=== PATIENT | male | born 1955 | race Hispanic/Latino ===

== ENCOUNTER 2022-02-10 05:38 | Day surgery (SDC) | payer MEDICARE ==
[2022-02-09 10:21] LABS: BASOPHILS % (AUTO) 0.3 % (0.0-5.0); EOSINOPHILS % (AUTO) 0.4 % (0.0-8.0); HEMATOCRIT 30.7 % (42-54); LYMPHOCYTES % (AUTO) 17.3 % (21.0-51.0); MEAN CORPUSCULAR HEMOGLOBIN 24.3 pg (27.0-33.0); MEAN CORPUSCULAR HGB CONC 31.6 g/dL (32.0-36.0); MEAN CORPUSCULAR VOLUME 76.9 fL (79-99); MONOCYTES % (AUTO) 6.1 % (3.0-13.0); NEUTROPHILS % (AUTO) 75.2 % (40.0-77.0); PLATELET COUNT (AUTO) 199 K/uL (130-400); RED BLOOD CELL COUNT(AUTO) 3.99 MIL/uL (4.50-6.20); RED CELL DISTRIBUTION WIDTH 16.6 % (11.0-15.5); WHITE BLOOD COUNT (AUTO) 7.2 K/uL (4.8-10.8)
[2022-02-09 10:31] LABS: CREATININE 1.7 mg/dL (0.5-1.5); POTASSIUM 4.4 mmol/L (3.5-5.1)
[2022-02-09 10:33] LABS: INR 0.96 (0.85-1.15); PROTHROMBIN TIME 10.5 SEC (9.6-11.6)
[2022-02-09 10:34] LABS: PARTIAL THROMBOPLASTIN TIME 26.8 SEC (26.3-35.5)
[~2022-02-10] VITALS: Ht 172.7 cm; Wt 135.6 kg
[2022-02-10 09:59] VITALS: BP 127/65
[2022-02-10] MEDS ORDERED: APIX5TAB PO (14:17)
[2022-02-10] MEDS ORDERED: ALLO100T PO (15:17)
[2022-02-10] MEDS ORDERED: FOLI1 PO (15:17)
[2022-02-10] MEDS ORDERED: SUCR1TAB2 PO (15:17)
[2022-02-10] MEDS ORDERED: IRON1CAP13 PO (15:17)
[2022-02-10] MEDS ORDERED: INSU3INS5 SQ (15:17)
[2022-02-10] MEDS ORDERED: TRAM50TA4 PO (15:17)
[2022-02-10] MEDS ORDERED: PANT40TA54 PO (15:17)
[2022-02-10] MEDS ORDERED: CARV25TA PO (15:17)
[2022-02-10] MEDS ORDERED: NITR0.4T50 SL (15:17)
[2022-02-10] MEDS ORDERED: POTA-183 PO (15:17)
[2022-02-10] MEDS ORDERED: GABA300C PO (15:17)
[2022-02-10] MEDS ORDERED: TORS20TA4 PO (15:17)
[2022-02-10] MEDS ORDERED: AMIO200T68 PO (15:17)
[2022-02-10] MEDS ORDERED: FAMO20TA8 PO (15:17)
[2022-02-10] MEDS ORDERED: SACU1TAB4 PO (15:17)
[2022-02-10] MEDS ORDERED: SENN-2 PO (15:17)
[2022-02-10] MEDS ORDERED: RANO10003 PO (15:17)
[2022-02-10] MEDS ORDERED: BISA5TAB12 PO (15:17)
[2022-02-10] MEDS ORDERED: LEVO25CA4 PO (15:17)
[2022-02-10] MEDS ORDERED: ISOS60TA77 PO (15:17)
[2022-02-13] VITALS (8 sets, daily range): BP systolic 105–133; BP diastolic 64–71
[2022-02-13] MEDS ORDERED: 0.9% NACL 500ML IV.SOLN 500 ML IV SCH (06:00)
[2022-02-13] MEDS ORDERED: CEFAZOLIN SODIUM 1 GM VIAL IVP SCH (06:00)
[2022-02-13] MEDS ORDERED: 0.9%NACL 1000ML 1,000 ML IV ONE (06:51)
[2022-02-13] MEDS ORDERED: MEPERIDINE-PF 25 MG/ML SYG ONE ×2 (07:42→08:05)
[2022-02-13] MEDS ORDERED: MIDAZOLAM HCL 1 MG/ML 2ML VIAL ONE ×2 (07:42→08:05)
[2022-02-13] MEDS ORDERED: BUPIVACAINE/PF 0.25% 30ML VIAL IJ ONE (07:42)
[2022-02-13] MEDS ORDERED: LIDOCAINE HCL 400MG/20ML VIAL ONE (07:43)
[2022-02-13] MEDS ORDERED: DOPAMINE HCL 400 MG/D5%-WATER 0 ML IV ONE (08:23)
[2022-02-13] MEDS ORDERED: BACITRACIN 1 EACH PACKET TP ONE (08:37)
[2022-02-13] MEDS ORDERED: ACETAMINOPHEN WITH CODEINE 1 TAB TAB PO PRN (09:00)
[2022-02-13] MEDS ORDERED: TRAM50TA4 PO (09:08)
== END 2022-02-13 12:10 | disposition home or self-care (01) ==
LOC: DAH 05:38
PROVIDERS: ATTEND Internal Medicine Cardiovascular Disease
DX: Z45.02 Encounter for adjustment and management of automatic implantable cardiac defibrillator (principal); I25.5 Ischemic cardiomyopathy; E11.22 Type 2 diabetes mellitus with diabetic chronic kidney disease; I12.9 Hypertensive chronic kidney disease with stage 1 through stage 4 chronic kidney disease, or unspecified chronic kidney disease; N18.9 Chronic kidney disease, unspecified; I50.22 Chronic systolic (congestive) heart failure; I25.10 Atherosclerotic heart disease of native coronary artery without angina pectoris; I48.91 Unspecified atrial fibrillation; Z79.899 Other long term (current) drug therapy; Z79.01 Long term (current) use of anticoagulants; Z79.890 Hormone replacement therapy; Z98.890 Other specified postprocedural states; Z82.49 Family history of ischemic heart disease and other diseases of the circulatory system; Z83.3 Family history of diabetes mellitus; Z87.891 Personal history of nicotine dependence
CPT/HCPCS: 80048; 85025; 85610; 85730; 36415; 93005; 82948; 33264; C1882; J0690; J3490 ×2; J7030; J2250 ×2; J2175 ×2; A4215; A4222; A4221; A4663; A4216; A6258; A4606; A4223 ×3; 99156; 99157; J1265